=== PATIENT | male | born 1940 | race Hispanic/Latino ===

== ENCOUNTER 2019-09-26 15:18 | Observation (INO) | payer OTHER ==
[~2019-09-26 15:18] MED LIST: ATEN50TA PO; FINA5TAB41 PO; MECL-129 PO; METF-444 PO; SIMV-43 PO; TAMS0.4C32 PO
[2019-09-26] MEDS ORDERED: ACETAMINOPHEN EXTRA STRENGTH 500 MG TABLET ONE (15:30)
[2019-09-26 15:57] LABS: HEMATOCRIT 36.5 % (42-54); LYMPHOCYTES % (AUTO) 4.6 % (21.0-51.0); MEAN CORPUSCULAR HEMOGLOBIN 26.5 pg (27.0-33.0); MEAN CORPUSCULAR HGB CONC 32.3 g/dL (32.0-36.0); MEAN CORPUSCULAR VOLUME 81.8 fL (79-99); MONOCYTES % (AUTO) 8.9 % (3.0-13.0); NEUTROPHILS % (AUTO) 86.2 % (40.0-77.0); PLATELET COUNT (AUTO) 108 K/uL (130-400); RED BLOOD CELL COUNT(AUTO) 4.46 MIL/uL (4.50-6.20); RED CELL DISTRIBUTION WIDTH 14.8 % (11.0-15.5); WHITE BLOOD COUNT (AUTO) 3.9 K/uL (4.8-10.8)
[2019-09-26 16:09] LABS: INR 0.99 (0.85-1.15); PARTIAL THROMBOPLASTIN TIME 33.8 SEC (26.3-35.5); PROTHROMBIN TIME 10.7 SEC (9.6-11.6)
[2019-09-26 16:11] LABS: CREATININE 1.1 mg/dL (0.5-1.5); POTASSIUM 3.6 mmol/L (3.5-5.1)
[2019-09-26 16:21] LABS: ALBUMIN 3.4 g/dL (3.5-5.0); BILIRUBIN,TOTAL 0.4 mg/dL (0.2-1.0); TOTAL PROTEIN, SERUM 7.3 g/dL (6.0-8.3)
[2019-09-26 16:34] LABS: APPEARANCE,URINE Clear (CLEAR); BILIRUBIN,URINE Negative (NEGATIVE); COLOR,URINE Dark Yellow (YELLOW); GLUCOSE, URINE (UA) Negative (NEGATIVE); KETONES,URINE Trace mg/dL (NEGATIVE); LEUKOCYTE ESTERASE ,URINE Negative (NEGATIVE); NITRATE,URINE Negative (NEGATIVE); OCCULT BLOOD,URINE Trace (NEGATIVE); PROTEIN,URINE POS 2+ mg/dL (NEGATIVE)
[2019-09-26 17:09] LABS: FERRITIN 3491 ng/mL (30-400)
[2019-09-26 17:17] LABS: BACTERIA,URINE Few /HPF (None Seen); MUCUS,URINE Few LPF (None Seen); SQUAMOUS EPITHELIAL CELL,UR Few /HPF (0-2)
[2019-09-26] MEDS ORDERED: AZITHROMYCIN 250 MG TABLET PO ONE (20:29)
[2019-09-26] MEDS ORDERED: DEXAMETHASONE SOD PHOSPHATE 10MG/ML 1ML VIAL ONE (20:29)
[2019-09-26] MEDS ORDERED: ZINC SULFATE 220 CAPSULE ONE (20:29)
[2019-09-26] MEDS ORDERED: DEXTROSE 50%-WATER 50 ML DISP.SYRIN IV PRN (21:45)
[2019-09-26] MEDS ORDERED: GLUCAGON 1MG KIT 1 MG ML IM PRN (21:45)
[2019-09-27 05:15] LABS: HEMATOCRIT 34.1 % (42-54); LYMPHOCYTES % (AUTO) 10.6 % (21.0-51.0); MEAN CORPUSCULAR HEMOGLOBIN 26.3 pg (27.0-33.0); MEAN CORPUSCULAR HGB CONC 32.3 g/dL (32.0-36.0); MEAN CORPUSCULAR VOLUME 81.6 fL (79-99); MONOCYTES % (AUTO) 8.3 % (3.0-13.0); NEUTROPHILS % (AUTO) 80.7 % (40.0-77.0); PLATELET COUNT (AUTO) 99 K/uL (130-400); RED BLOOD CELL COUNT(AUTO) 4.18 MIL/uL (4.50-6.20); RED CELL DISTRIBUTION WIDTH 14.9 % (11.0-15.5); WHITE BLOOD COUNT (AUTO) 2.6 K/uL (4.8-10.8)
[2019-09-27 05:30] LABS: CREATININE 0.8 mg/dL (0.5-1.5); POTASSIUM 3.9 mmol/L (3.5-5.1)
[2019-09-27] MEDS ORDERED: ZINC SULFATE 220 CAPSULE ONE (07:19)
[2019-09-27] MEDS ORDERED: INSULIN R PO SS2 SQ SCH (07:30)
[2019-09-27] MEDS ORDERED: DEXAMETHASONE SOD PHOSPHATE 4 MG/ML 1ML VIAL IVP SCH (09:00)
[2019-09-27] MEDS ORDERED: AZITHROMYCIN 250 MG TABLET PO SCH (09:00)
[2019-09-27 10:05] LABS: ABG BASE EXCESS 0.3 mmol/L (-2.0-3.0); ABG HCO3 24.2 mmol/L (21.0-28.0); ABG OXYGEN SATURATION 96.3 % (95.0-99.0); ABG PCO2 37 mmHg (35-48)
[2019-09-27] MEDS ORDERED: ZINC SULFATE 220 CAPSULE PO SCH (12:00)
[2019-09-27] MEDS ORDERED: DEXA6TAB PO (14:26)
[2019-09-27] MEDS ORDERED: [UNRECOGNIZED DRUG - CODE] IV (14:26)
[2019-09-28 10:13] LABS: HEPATITIS A ANTIBODY IGM Negative (Negative); HEPATITIS B CORE IGM Negative (Negative); HEPATITIS Bs ANTIGEN SCREEN P Negative (Negative)
== END 2019-09-27 16:29 | disposition home or self-care (01) ==
LOC: EDH 15:18 → EDHIP 19:10 → UNDODEPER 09-29 01:54
PROVIDERS: ADMIT Internal Medicine; ATTEND Internal Medicine
DX: U07.1 COVID-19 (principal); E11.9 Type 2 diabetes mellitus without complications; I10 Essential (primary) hypertension; N40.0 Benign prostatic hyperplasia without lower urinary tract symptoms; Z79.899 Other long term (current) drug therapy
CPT/HCPCS: 36415 ×2; 36600; 71045 ×2; 76705; 80048; 80053; 80074; 81001; 82550; 82728; 82803; 82948 ×2; 83605; 84145; 84484; 85025 ×2; 85378; 85610; 85730; 86140; 86900; 86901; 87040 ×2; 93005; 99291; G0378 ×6; J1100; U0003